=== PATIENT | female | born 1990 | race Caucasian/White ===

== ENCOUNTER 2022-05-23 05:46 | Inpatient (IN) ==
[2022-05-23] MEDS ORDERED: Lactated Ringers 1000 ml BAG 1,000 ML IV SCH ×2 (06:00→11:00)
[2022-05-23] MEDS ORDERED: Buffered Lidocaine 1% SYRIN 1 ml INTRADERM ONE (06:00)
[2022-05-23] MEDS ORDERED: Sodium Citrate/Citric Acid LIQ 15 ML UDC PO ONE (06:00)
[2022-05-23] MEDS ORDERED: ceFOXitin 2 GM PREMIX 50 ML IVPB ONE (07:00)
[2022-05-23 07:23] LABS: ABS Basophils 0.1 10^3/ul (0-0.2); ABS Eosinophils 0.1 10^3/ul (0-0.6); ABS Monocytes 0.7 10^3/ul (0-0.8); ABS Neutrophils 6.5 10^3/ul (1.5-7.7); Eosinophil % 1.3 %; Hematocrit 35 % (35-47); Hemoglobin 11.7 g/dL (12.0-16.0); Lymphocyte % 21.2 %; Mean Corpuscular HGB Conc 33 g/dL (31-36); Mean Corpuscular Hemoglobin 31 pg (27-31); Mean Corpuscular Volume 95 fL (80-97); Mean Platelet Volume 10.7 fL (7.4-10.4); Platelet Count 140 10^3/uL (150-450); Red Blood Count 3.72 10^6 /uL (3.70-4.87); Red Cell Distribution Width 13 % (10-15); White Blood Count 9.4 10^3/uL (3.5-10.8)
[2022-05-23] MEDS ORDERED: Morphine PF AMP (0.5MG/ML) 5 MG/10 ML AMP ONE (07:43)
[2022-05-23] MEDS ORDERED: Oxytocin 10 UNITS/ML 1 ML VIAL ONE (07:44)
[2022-05-23] MEDS ORDERED: Propofol 10 MG/ML 20 ML BTL ONE ×2 (08:37→08:53)
[2022-05-23] MEDS ORDERED: Midazolam 2 mg/2 ml VIAL 1 mg/ml 2 ml VIAL (2 mg) ONE ×2 (08:39→08:44)
[2022-05-23] MEDS ORDERED: Ketamine HCL 50 mg/ml 10 ml VIAL (500 MG) ONE (08:41)
[2022-05-23 09:09] LABS: Urine Appearance Clear; Urine Bilirubin Negative (Negative); Urine Blood Negative (Negative); Urine Color Straw; Urine Glucose Negative (Negative); Urine Ketones Negative (Negative); Urine Nitrite Negative (Negative); Urine Protein Negative (Negative); Urine Specific Gravity 1.004 (1.002-1.030); Urine Urobilinogen Negative (Negative)
[2022-05-23 09:11] LABS: Urine Benzodiazepine Screen None Detected (None Detect); Urine Cannabinoids Screen None Detected (None Detect); Urine Opiates Screen None Detected (None Detect)
[2022-05-23] MEDS ORDERED: fentaNYL 100 mcg/2 ml 50 MCG/ML VIAL ONE (09:20)
[2022-05-23] MEDS ORDERED: Bupivacaine 0.25% SDV 30 ML ONE (09:46)
[2022-05-23] MEDS ORDERED: fentaNYL 100 mcg/2 ml 50 MCG/ML VIAL IV PRN (09:54)
[2022-05-23] MEDS ORDERED: Naloxone 0.4 mg VIAL 0.4 mg/ml 1 ml VIAL IV PRN (09:54)
[2022-05-23] MEDS ORDERED: Ondansetron 4 mg VIAL 2 MG/ML 2 ml VIAL IV PRN ×2 (09:54→11:20)
[2022-05-23] MEDS ORDERED: Lidocaine 2% PF 10 ML AMP (OR) ONE (10:06)
[2022-05-23] MEDS ORDERED: Glycerin ADULT 2.4 gm SUPP PR PRN (10:11)
[2022-05-23] MEDS ORDERED: Dibucaine 1% OINT 28.35 GM TUBE PR PRN (10:11)
[2022-05-23] MEDS ORDERED: Witch Hazel PAD JAR TOPICAL PRN (10:11)
[2022-05-23] MEDS ORDERED: Oxytocin in LR 20,000 MILLI.UNIT/1,000 ML BAG IV SCH (10:15)
[2022-05-23] MEDS ORDERED: Acetaminophen IV 1 GM/100ML 1,000 MG/100 ML BAG IV PRN (11:20)
[2022-05-23] MEDS ORDERED: Metoclopramide 5 MG/ML VIAL (10 mg) IV PRN (11:20)
[2022-05-23] MEDS ORDERED: Naloxone 0.4 mg VIAL 0.4 mg/ml 1 ml VIAL IV PUSH PRN (11:20)
[2022-05-23] MEDS: Nicotine PATCH 7 MG/24 HR PATCH TRANSDERM SCH (20:48)
[2022-05-24 07:32] LABS: ABS Basophils 0.1 10^3/ul (0-0.2); ABS Eosinophils 0.2 10^3/ul (0-0.6); ABS Lymphocytes 1.6 10^3/ul (1.0-4.8); ABS Neutrophils 12.7 10^3/ul (1.5-7.7); Eosinophil % 1.4 %; Hematocrit 31 % (35-47); Hemoglobin 10.3 g/dL (12.0-16.0); Lymphocyte % 10.5 %; Mean Corpuscular HGB Conc 34 g/dL (31-36); Mean Corpuscular Hemoglobin 32 pg (27-31); Mean Corpuscular Volume 95 fL (80-97); Mean Platelet Volume 9.6 fL (7.4-10.4); Platelet Count 121 10^3/uL (150-450); Red Blood Count 3.23 10^6 /uL (3.70-4.87); Red Cell Distribution Width 13 % (10-15); White Blood Count 15.6 10^3/uL (3.5-10.8)
[2022-05-24] MEDS ORDERED: Buprenorphine 2 mg SL TAB SL PRN (10:49)
[2022-05-24] MEDS: Nicotine PATCH 7 MG/24 HR PATCH TRANSDERM SCH (15:43)
[2022-05-25] MEDS: Buprenorphine 2 mg SL TAB SL PRN ×3 (08:31→21:12)
[2022-05-25] MEDS: Nicotine PATCH 7 MG/24 HR PATCH TRANSDERM SCH (10:36)
[2022-05-26 09:29] VITALS: BP 103/60
[2022-05-26] MEDS: Buprenorphine 2 mg SL TAB SL PRN (11:35)
[2022-05-26] MEDS: Nicotine PATCH 7 MG/24 HR PATCH TRANSDERM SCH (14:31)
== END 2022-05-26 16:47 | disposition home or self-care (01) | DRG 540 ==
LOC: MCHOB 05:46
PROVIDERS: ADMIT Obstetrics & Gynecology; ATTEND Obstetrics & Gynecology